=== PATIENT | male | born 1995 | race Hispanic/Latino ===

== ENCOUNTER 2021-01-09 18:57 | Emergency (ER) | payer OTHER, SELFPAY ==
[2021-01-09 19:21] VITALS: BP 107/55; PULSE 62; RESP 16; TEMP 37.4; O2SAT 97
--- NOTE | 2021-01-09 21:27 | ED.WOUNDLAC ---
HPI - Wound/Laceration General Chief Complaint: Wound/Laceration Stated Complaint: Cut, Left Foot Heel Time Seen by Provider: 01/09/21 21:25 Source: patient Mode of arrival: Ambulatory History of Present Illness HPI narrative: Patient is a 25-year-old male who is up-to-date on his tetanus shot who is here for evaluation of a cut to his left heel. He was swimming in a local [place] when he cut his foot what he thinks is a rock. He reports no other injuries from the event. Related Data Previous Rx's Medication Instructions Recorded cephalexin 500 mg capsule 500 mg PO QID 7 Days #28 cap 01/09/21 Allergies Allergy/AdvReac Type Severity Reaction Status Date / Time iodine Allergy Verified 01/09/21 21:35 Review of Systems Review of Systems Narrative: 12 system review of system negative except for what is positive below Musculoskeletal Comments: Left heel pain secondary to cut Integumentary/Breasts Comments: Cut to his left heel Neurologic Comments: No change in neurologic status Hematologic/Lymphatic On Anticoagulants: No Patient History Medical History Healthy adult Social History marital status: Exam Initial Vital Signs Initial Vital Signs: Vital Signs Temperature 99.3 F 01/09/21 19:21 Pulse Rate 62 01/09/21 19:21 Respiratory Rate 16 01/09/21 19:21 Blood Pressure 107/55 L 01/09/21 19:21 Pulse Oximetry 97 01/09/21 19:21 Const General: cooperative and healthy appearing [facility] Head: normal to inspection and normocephalic Cardio Pulses: dorsalis pedis present Skin Other: Patient with a laceration to the medial aspect of his left heel. Approximately 5 cm total length but it is in a ?L ?shape Neuro Other: Sensation intact to light touch left lower extremity Extrem Other: Other than the cut to his left foot the rest of his extremity exam is unremarkable Procedures Laceration Repair Laceration 1: Site: other (Left foot) Side (If applicable): left Size (cm): 5 Description: irregular Depth: simple, single layer Local Anesthetic: lidocaine 1% and with bicarb Amount of anesthesia used (mL): 5 Pre-repair: wound explored, irrigated extensively and deep structures intact Skin layer closed with: nylon Size (cm): 3-0 Number of sutures: 6 Technique: simple, interrupted Course Orders Ordered: Discontinued Medications Bacitracin (Bacitracin Oint 0.9 Gm Pckt) 1 applic TOP NOW ONE Stop: 01/09/21 21:27 Last Admin: 01/09/21 22:07 Dose: 1 applic Documented by: [email or web address] Cephalexin HCl (Cephalexin 250 Mg Capsule) 500 mg PO NOW ONE Stop: 01/09/21 22:26 Last Admin: 01/09/21 22:33 Dose: 500 mg Documented by: [email or web address] Lidocaine/Sodium Bicarbonate (Lido 1%/Sod Bicarb 8.4% (10ml) 10 Ml Syringe) 10 ml INJ NOW ONE Stop: 01/09/21 21:27 Last Admin: 01/09/21 22:07 Dose: 10 ml Documented by: [email or web address] Vital Signs Vital signs: Vital Signs - 8 hr 01/09/21 19:21 Temperature 99.3 F Pulse Rate 62 Respiratory Rate 16 Blood Pressure 107/55 L Pulse Oximetry 97 MDM - Wound/Laceration Medical Records Medical records narrative: Patient is up-to-date on his tetanus. Laceration was closed as described above. There is no other injuries from the event. The wound was irrigated extensively prior to closure. Will place him on antibiotics given the nature of the wound. He was given return precautions and follow-up instructions. He expressed understanding and agreement. Discharge Plan Departure Patient Disposition: Home Clinical Impression: Laceration Instructions: DI for Laceration Repair Activity Restrictions/Additional Instructions: start taking the antibiotics as directed. You can shower like normal however do not soak your foot in anything until the wound is healed. The stitches do need to be removed in 10 days. Contact your medical department for follow-up. Return to the emergency department for any new or worsening symptoms. Prescriptions: New cephalexin 500 mg capsule 500 mg PO QID 7 Days Qty: 28 RF: 0
[2021-01-09] MEDS: LIDO 1%/SOD BICARB 8.4% (10ML) 10 ML SYRINGE INJ (22:07)
[2021-01-09] MEDS: BACITRACIN OINT 0.9 GM PCKT 1 APPLIC TOP (22:07)
[2021-01-09] MEDS: cephALEXin 250 MG CAPSULE 500 MG PO (22:33)
[2021-01-09 22:39] VITALS: BP 113/61; PULSE 58; RESP 16; O2SAT 99
== END 2021-01-09 22:40 | disposition home or self-care (01) ==
PROVIDERS: Emergency Provider Emergency Medicine
DX: S91.312A Laceration without foreign body, left foot, initial encounter (principal); W26.9XXA Contact with unspecified sharp object(s), initial encounter; Y93.11 Activity, swimming; Y92.828 Other wilderness area as the place of occurrence of the external cause
CPT/HCPCS: 12002; 99283